=== PATIENT | female | born 1925 | race Caucasian/White ===

== ENCOUNTER 2016-06-26 10:51 | Emergency (ER) | payer MEDICARE, OTHER ==
[2016-06-26] MEDS ORDERED: Ondansetron 4 MG/2 ML SDV ONE (10:58)
[2016-06-26] MEDS ORDERED: HYDROmorphone 0.5 MG/0.5 ML Syringe ONE (11:12)
[2016-06-26 11:19] VITALS: BP 152/89
--- NOTE | 2016-06-26 11:19 | EDM.PDOC ---
ED HPI NEURO - General Chief Complaint: Neuro Symptoms/Deficits Stated Complaint: MEDICAL VIA AMBULANCE Time Seen by Provider: 06/26/16 11:00 Source: Reports: Patient, EMS, Family - History of Present Illness INITIAL COMMENTS - FREE TEXT/NARRATIVE: 89-year-old female developed a very severe sudden onset headache 1-1/2 hours ago , with some nausea and mild confusion. EMS was called and found her to be diaphoretic and anxious with a severe headache, transferred the patient to our hospital which was the nearest hospital, 20 minutes away. Glucose was 160, blood pressure 140/70. On arrival the patient was transferred immediately to the CT scan which showed diffuse subarachnoid hemorrhage Timing/Duration: Reports: Hour(s): (Within the last 2 hours) Location (Neuro Complaint): Reports: other (Some lower extremity weakness however chief complaint was headache) Associated symptoms: Reports: confusion, headaches, weakness - Related Data Allergies/ADRs: Allergies Allergy/AdvReac Type Severity Reaction Status Date / Time No Known Allergies Allergy Verified 11/05/15 11:32 Home Meds: Home Meds Levothyroxine [Synthroid] 88 mcg PO DAILY 12/10/12 [History] Pantoprazole Sodium [Protonix] 40 mg PO DAILY 12/10/12 [History] Simvastatin [Zocor] 0.5 tab PO BEDTIME 12/10/12 [History] Triamterene/Hydrochlorothiazid [Triamterene-HCTZ 37.5-25 MG] 1 each PO DAILY 01/12 [History] Aspirin [Caroline Chewable Aspirin] 81 mg PO DAILY 09/06/14 [History] Docusate Sodium [Colace] 100 mg PO DAILY PRN 09/06/14 [History] NIFEdipine [Procardia XL] 30 mg PO DAILY 09/06/14 [History] Past Medical History HEENT History: Reports: Cataract Cardiovascular History: Reports: High cholesterol, Hypertension Gastrointestinal History: Reports: Bowel obstruction Genitourinary History: Reports: Urinary incontinence 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: Dysfunctional uterine bleeding, Endometriosis, Musculoskeletal History: Reports: Arthritis Endocrine/Metabolic History: Reports: Other (see below) Other Endocrine/Metabolic History: throid disease Other Oncologic History: skin cancer Dermatologic History: Reports: Other (see below) Other Dermatologic History: r leg, melanoma and basal cell - Infectious Disease History Infectious Disease History: Reports: Chicken pox, Measles, Mumps - Past Surgical History HEENT Surgical History: Reports: Cataract surgery GI Surgical History: Reports: Colonoscopy, Small bowel, Other (see below) Other GI Surgeries/Procedures: rectocel. hemroidectomy Female Surgical History: Reports: Hysterectomy Endocrine Surgical History: Reports: Other (see below) Other Endocrine Surgeries/Procedures: thyroid surgery Pt not sure Other Musculoskeletal Surgeries/Procedures:: surgery hands Social & Family History - Tobacco Use Smoking Status *Q: Never Smoker Second Hand Smoke Exposure: No - Caffeine Use Caffeine Use: Reports: None - Alcohol Use Days Per Week of Alcohol Use: 3 Number of Drinks Per Day: 1 Total Drinks Per Week: 3 - Recreational Drug Use Recreational Drug Use: No - Living Situation & Occupation Living situation: Reports: ([facility] in [place], in [place], [place]) Occupation: retired ED ROS GENERAL - Review of Systems Review Of Systems: Unable To Obtain ED EXAM, NEURO - Physical Exam Exam: See Below Exam Limited By: Other (Patient had difficulty answering questions because of her intense headache) General Appearance: anxious, moderate distress Eye Exam: bilateral eye: EOMI, PERRL Respiratory/Chest: no respiratory distress Cardiovascular: regular rate, rhythm Neurological: alert, other (Brief neurological exam was done, some lower extremity weakness but no asymmetry.) Psychiatric: anxious Skin Exam: Warm Course - Vital Signs Last Recorded V/S: Last Vital Signs Temp 93.2 F L 06/26/16 11:18 Pulse 72 06/26/16 11:18 Resp 14 06/26/16 11:18 BP 152/89 H 06/26/16 11:18 Pulse Ox 100 06/26/16 11:18 - Orders/Labs/Meds Labs: Laboratory Tests 06/26/16 06/26/16 06/26/16 Range/Units 11:10 11:10 11:10 WBC 7.6 (4.5-11.0) K/uL RBC 4.54 (3.30-5.50) M/uL Hgb 13.7 (12.0-15.0) g/dL Hct 41.2 (36.0-48.0) % MCV 91 (80-98) fL MCH 30 (27-31) pg MCHC 33 (32-36) % Plt Count 492 H (150-400) K/uL Neut % (Auto) 52 (36-66) % Lymph % (Auto) 39 (24-44) % [place] % (Auto) 6 (2-6) % Eos % (Auto) 2 (2-4) % Baso % (Auto) 1 (0-1) % PT 11.4 (9.5-12.0) sec INR 1.07 (0.80-1.20) Sodium 141 (140-148) mmol/L Potassium 3.1 L (3.6-5.2) mmol/L Chloride 101 (100-108) mmol/L Carbon Dioxide 23 (21-32) mmol/L Anion Gap 20.1 H (5.0-14.0) mmol/L BUN 14 D (7-18) mg/dL Creatinine 1.1 H (0.6-1.0) mg/dL Est Cr Clr Drug Dosing 32.63 mL/min Estimated GFR (MDRD) 47 L (>60) Glucose 178 H (74-106) mg/dL Calcium 9.1 (8.5-10.1) mg/dL Total Bilirubin 0.4 (0.2-1.0) mg/dL AST 23 (15-37) U/L ALT 17 (12-78) U/L Alkaline Phosphatase 65 (46-116) U/L Total Protein 7.5 (6.4-8.2) g/dL Albumin 3.9 (3.4-5.0) g/dL Globulin 3.6 H (2.3-3.5) g/dL Albumin/Globulin Ratio 1.1 L (1.2-2.2) Meds: Medications Discontinued Medications Generic Name Dose Route Start Last Admin Trade Name Lolsi PRN Reason Stop Dose Admin Hydromorphone HCl 0.5 mg 06/26/16 11:11 06/26/16 11:33 Dilaudid IVPUSH 06/26/16 11:12 Not Given ONETIME ONE Sodium Chloride 1,000 mls @ 500 mls/hr 06/26/16 11:30 06/26/16 11:31 Normal Saline IV 500 mls/hr ASDIRECTED ANA Administration Ondansetron HCl 4 mg 06/26/16 11:29 06/26/16 11:32 Zofran IVPUSH 06/26/16 11:30 4 mg ONETIME ONE Administration - Re-Assessments/Exams Free Text/Narrative Re-Assessment/Exam: 06/26/16 11:23 With the results of that CT showing some diffuse subarachnoid hemorrhage the patient was urgently transferred by [facility] and sent to [facility]. Departure - Departure Time of Disposition: 11:34 Disposition: DC/Tfer to Acute Hospital 02 Condition: poor Clinical Impression: Intracranial hemorrhage Referrals: PCP,None [Primary Care Provider] - Forms: ED Department Discharge Care Plan Goals: Patient was transferred to [facility] in [place] for an urgent interventional radiology assessment. She was communicating and stable on discharge. Her son was informed that this is a very serious event and may not be survivable and her age.
--- NOTE | 2016-06-26 11:26 | CT ---
Head wo Cont HISTORY: Evaluate for stroke. COMPARISON: None TECHNIQUE: Noncontrast enhanced axial cuts were obtained of the brain. Coronal images were reconstru cted. Total DLP: [id number]. FINDINGS: There is severe subarachnoid hemorrhage the suprasellar and basilar cisterns are filled wi th subarachnoid blood. There is blood within the sylvian fissures bilaterally but significantly more on the right. Blood is pooling in the prepontine cistern as well as ambient wing cisterns. There is evidence of blood within the third and fourth ventricles. There is no blood within the lateral vent ricles. There is no evidence for parenchymal hemorrhage. Involutional age-related changes of the whi te matter are demonstrated. Impression: 1. Fairly extensive subarachnoid hemorrhage. The blood is increased in the subarachnoid spaces on th e right. Question right MCA aneurysm. Cerebral angiography would be useful for aneurysm evaluation. Critical findings discussed with ER physician at 10:55 AM.
[2016-06-26] MEDS ORDERED: Sodium Chloride 0.9% 1,000 ML IV SCH (11:30)
[2016-06-26] MEDS: HYDROmorphone 0.5 MG/0.5 ML Syringe IVPUSH ONE ×2 (11:32→11:33)
[2016-06-26] MEDS: Ondansetron 4 MG/2 ML SDV IVPUSH ONE ×2 (11:32)
== END 2016-06-26 11:25 ==
LOC: JP.ED 10:51
DX: I60.9 Nontraumatic subarachnoid hemorrhage, unspecified (principal); I10 Essential (primary) hypertension; E78.00 Pure hypercholesterolemia, unspecified; R32 Unspecified urinary incontinence; M19.90 Unspecified osteoarthritis, unspecified site; E07.9 Disorder of thyroid, unspecified; Z79.82 Long term (current) use of aspirin; Z79.899 Other long term (current) drug therapy
CPT/HCPCS: 36415; 70450; 80053; 85025; 85610; J1170; J2405; J7040; 96374; 96375; 99285; 99285-25